=== PATIENT | male | born 1950 | race Caucasian/White ===

== ENCOUNTER 2021-04-22 08:16 | Emergency (ER) | payer MEDICARE, OTHER ==
[2021-04-22 11:39] VITALS: BP 132/80; PULSE 74
== END 2021-04-22 13:18 | disposition home or self-care (01) ==
LOC: LB.ED 08:16
DX: U07.1 COVID-19 (principal); E05.90 Thyrotoxicosis, unspecified without thyrotoxic crisis or storm; Z88.8 Allergy status to other drugs, medicaments and biological substances; Z79.899 Other long term (current) drug therapy
CPT/HCPCS: 87804; 87804-59; 99284-25; M0247; Q0247; U0002

== ENCOUNTER 2023-03-15 15:51 | Emergency (ER) | payer MEDICARE ==
[2023-03-15 16:11] VITALS: BP 174/96; PULSE 56
[2023-03-15] MEDS ORDERED: Lidocaine 1% 5 ML VIAL INJECT ONE (16:23)
== END 2023-03-15 16:55 | disposition home or self-care (01) ==
LOC: LB.ED 15:51
DX: S61.212A Laceration without foreign body of right middle finger without damage to nail, initial encounter (principal); E03.9 Hypothyroidism, unspecified; Z79.899 Other long term (current) drug therapy; Z88.8 Allergy status to other drugs, medicaments and biological substances; W20.8XXA Other cause of strike by thrown, projected or falling object, initial encounter
CPT/HCPCS: 12001; 73140-F7; 99283